=== PATIENT | male | born 1980 | race Caucasian/White ===

== ENCOUNTER 2019-01-23 10:14 | Emergency (ER) | payer OTHER ==
[~2019-01-23] VITALS: Ht 180.3 cm; Wt 71.7 kg
[2019-01-23] MEDS ORDERED: IBUPROFEN 600600 M1 PO (10:50)
[2019-01-23 11:10] VITALS: BP 128/73
== END 2019-01-23 11:09 | disposition home or self-care (01) ==
LOC: M.ERS 10:14
DX: S92.421A Displaced fracture of distal phalanx of right great toe, initial encounter for closed fracture (principal); W10.9XXA Fall (on) (from) unspecified stairs and steps, initial encounter; Y93.89 Activity, other specified; Y92.89 Other specified places as the place of occurrence of the external cause; Y99.8 Other external cause status

== ENCOUNTER 2020-08-01 10:56 | Emergency (ER) | payer OTHER ==
[~2020-08-01] VITALS: Ht 180.3 cm; Wt 64.4 kg
[~2020-08-01 10:56] MED LIST: IBUPROFEN 600600 M1 PO
[2020-08-01 11:53] LABS: HEMATOCRIT 41.1 % (42.0-52.0); HEMOGLOBIN 14.3 gm/dL (14.0-18.0); MCH 35.7 pg (26.0-34.0); MCHC 34.8 g/dL (28.0-37.0); MCV 102.7 fL (80.0-100.0); WBC 5.2 thou/uL (4.0-11.0)
[2020-08-01 12:08] LABS: CALCIUM 8.6 mg/dL (8.5-10.1); POTASSIUM 4.2 mmol/L (3.5-5.1)
[2020-08-01 12:21] LABS: TOTAL BILIRUBIN 0.4 mg/dL (<0.1-1.0); TOTAL PROTEIN 6.9 g/dL (6.4-8.2)
[2020-08-01] MEDS ORDERED: NORCO 5-325 TA1 EAC2 PO (14:13)
[2020-08-01 14:46] VITALS: BP 119/68
== END 2020-08-01 14:47 | disposition home or self-care (01) ==
LOC: M.ERS 10:56
PROVIDERS: Emergency Medicine Emergency Medical Services
DX: S80.211A Abrasion, right knee, initial encounter (principal); S40.211A Abrasion of right shoulder, initial encounter; M25.531 Pain in right wrist; R07.81 Pleurodynia; V86.09XA Driver of other special all-terrain or other off-road motor vehicle injured in traffic accident, initial encounter; Y93.89 Activity, other specified; Y92.89 Other specified places as the place of occurrence of the external cause; Y99.8 Other external cause status

== ENCOUNTER 2021-11-03 11:07 | Emergency (ER) | payer OTHER, MEDICAID ==
[~2021-11-03] VITALS: Ht 180.3 cm; Wt 65.8 kg
[~2021-11-03 11:07] MED LIST changes: +NORCO 5-325 TA1 EAC2 PO
[2021-11-03] MEDS ORDERED: CEPHALEXIN500 MG PO (13:57)
[2021-11-03 14:18] VITALS: BP 109/72
== END 2021-11-03 14:18 | disposition home or self-care (01) ==
LOC: M.ERS 11:07
DX: S61.216A Laceration without foreign body of right little finger without damage to nail, initial encounter (principal); S60.414A Abrasion of right ring finger, initial encounter; F17.210 Nicotine dependence, cigarettes, uncomplicated; W22.8XXA Striking against or struck by other objects, initial encounter; Y93.89 Activity, other specified; Y92.89 Other specified places as the place of occurrence of the external cause; Y99.8 Other external cause status